=== PATIENT | male | born 1985 | race African-American/Black ===

== ENCOUNTER 2019-02-07 14:23 | Emergency (ER) | payer MEDICAID ==
[~2019-02-07] VITALS: Ht 185.4 cm; Wt 90.0 kg
[2019-02-07 14:28] VITALS: BP 133/85
== END 2019-02-07 18:22 | disposition home or self-care (01) ==
LOC: ER 14:23
DX: S81.812A Laceration without foreign body, left lower leg, initial encounter (principal); S61.011A Laceration without foreign body of right thumb without damage to nail, initial encounter; W45.8XXA Other foreign body or object entering through skin, initial encounter; Y93.89 Activity, other specified; Y92.89 Other specified places as the place of occurrence of the external cause; Y99.8 Other external cause status
CPT/HCPCS: 99283; A4217; Z7610